=== PATIENT | male | born 1965 | race Caucasian/White ===

== ENCOUNTER → 2019-11-29 | Outpatient (CLI) | payer OTHER ==
[~2019-11-29] MED LIST: ATIVAN1 MG PO; AVELOX 400 MG400 MG PO; NORVASC5 MG PO; SYNTHROID75 MCG PO
[2019-11-29 09:33] LABS: BASOPHILS 1.1 % (0.0-2.0); EOSINOPHILS 1.9 % (0.0-3.0); HEMATOCRIT 46.6 % (42.0-52.0); LYMPHOCYTES 37.9 % (24.0-44.0); MCH 30.8 pg (26.0-34.0); MCHC 34.3 g/dL (28.0-37.0); MCV 89.6 fL (80.0-100.0); MONOCYTES 9.8 % (1.0-8.0); PLATELET COUNT 296 thou/uL (150-400); POLYS 49.3 % (36.0-66.0); RDW 13.4 % (10.5-14.5); WBC 6.1 thou/uL (4.0-11.0)
[2019-11-29 10:05] LABS: ALBUMIN 3.9 g/dL (3.4-5.0); ANION GAP 9 mmol/L (7-16); BUN 13 mg/dL (7-18); CALCIUM 8.7 mg/dL (8.5-10.1); CHLORIDE 105 mmol/L (98-107); CHOLESTEROL 224 mg/dL (<200); CO2 27 mmol/L (21-32); CREATININE 0.9 mg/dL (0.7-1.3); GLUCOSE 104 mg/dL (74-106); HDL CHOLESTEROL 43 mg/dL (>40); LDL CHOLESTEROL 166 mg/dL (<100); POTASSIUM 3.9 mmol/L (3.5-5.1); SGOT 14 U/L (15-37); SGPT 28 U/L (30-65); SODIUM 141 mmol/L (136-145); TC:HDL 5.2 Ratio (Not establshd); TOTAL BILIRUBIN 0.5 mg/dL (0.2-1.0); TOTAL PROTEIN 6.9 g/dL (6.4-8.2); TRIGLYCERIDE 79 mg/dL (<150); VLDL 16 mg/dL (<40)
== END ==
LOC: LABMALL 09:01
PROVIDERS: ATTEND Family Medicine
DX: Z12.5 Encounter for screening for malignant neoplasm of prostate (principal); E78.00 Pure hypercholesterolemia, unspecified; I10 Essential (primary) hypertension; E03.9 Hypothyroidism, unspecified; E55.9 Vitamin D deficiency, unspecified

== ENCOUNTER → 2019-12-20 | Outpatient (CLI) | payer OTHER | LOC: LAB 10:06 | PROVIDERS: ATTEND Student in an Organized Health Care Education/Training Program | DX: U07.1 COVID-19 (principal) ==

== ENCOUNTER → 2020-01-09 | Outpatient (CLI) | payer OTHER ==
[2020-01-09 12:24] LABS: ABSOLUTE NEUTROPHILS 3.7 thou/uL (1.4-8.2); BASOPHILS 0.6 % (0.0-2.0); HEMATOCRIT 45.8 % (42.0-52.0); HEMOGLOBIN 15.3 gm/dL (14.0-18.0); LYMPHOCYTES 28.7 % (24.0-44.0); MCH 30.1 pg (26.0-34.0); MCHC 33.3 g/dL (28.0-37.0); MCV 90.4 fL (80.0-100.0); MONOCYTES 10.5 % (1.0-8.0); PLATELET COUNT 368 thou/uL (150-400); POLYS 59.2 % (36.0-66.0); RBC 5.07 mil/uL (4.50-6.00); RDW 13.2 % (10.5-14.5); WBC 6.3 thou/uL (4.0-11.0)
[2020-01-09 12:40] LABS: ANION GAP 8 mmol/L (7-16); BUN 10 mg/dL (7-18); CALCIUM 8.8 mg/dL (8.5-10.1); CHLORIDE 104 mmol/L (98-107); CO2 29 mmol/L (21-32); GLUCOSE 96 mg/dL (74-106); POTASSIUM 4.3 mmol/L (3.5-5.1); SGOT 17 U/L (15-37); SGPT 39 U/L (30-65); SODIUM 141 mmol/L (136-145); TOTAL BILIRUBIN 0.6 mg/dL (0.2-1.0); TOTAL PROTEIN 7.3 g/dL (6.4-8.2)
[2020-01-09 12:56] LABS: CHOLESTEROL 237 mg/dL (<200); HDL CHOLESTEROL 37 mg/dL (>40); LDL CHOLESTEROL 167 mg/dL (<100); TC:HDL 6.4 Ratio (Not establshd); TRIGLYCERIDE 169 mg/dL (<150); VLDL 34 mg/dL (<40)
[2020-01-10 01:11] LABS: TESTOSTERONE* 362 ng/dL (264-916)
== END ==
LOC: LABMALL 10:27
PROVIDERS: ATTEND Family Medicine
DX: R53.83 Other fatigue (principal)

== ENCOUNTER 2020-03-09 16:01 | Emergency (ER) | payer OTHER ==
[~2020-03-09] VITALS: Ht 167.6 cm; Wt 72.6 kg
--- NOTE | ~2020-03-09 | EKG ---
[facility] [place] [address] ELECTROCARDIOGRAM REPORT Name: BROOKS ORTIZ Room #: [facility].#: [id number] Admission: Attend Phys: Discharge: Date of : 65 Report #: [id number] THIS REPORT FOR: cc: Robbie Collier MD, Rene P. MD Epiphany, Epiphany MD ~ THIS REPORT FOR: //name// [facility] ED Test Date: 2020-03-09 Test Time: 17:54:56 Pat Name: BROOKS ORTIZ Department: Room: Gender: [employer] Instructor: [facility] : 1965 Requested By: Farida Lynch Order Number: [id number] MD: Measurements Intervals Osborne Rate: 67 P: 67 AR: 167 QRS: 6 QRSD: 82 T: 17 QT: 379 QTc: 400 Interpretive Statements Sinus rhythm Compared to ECG 06/08/2014 10:33:16 No significant changes [email or web address] By: 53 53 Epiphany Epiphany, /EPI
[2020-03-09 18:20] VITALS: BP 148/72
== END 2020-03-09 18:52 | disposition home or self-care (01) ==
LOC: ER 16:01 → EDBD 16:01 → ER 18:52
DX: R07.9 Chest pain, unspecified (principal); M54.6 Pain in thoracic spine; K21.9 Gastro-esophageal reflux disease without esophagitis; I10 Essential (primary) hypertension; E03.9 Hypothyroidism, unspecified; Z79.899 Other long term (current) drug therapy; Z88.1 Allergy status to other antibiotic agents; Z88.8 Allergy status to other drugs, medicaments and biological substances

== ENCOUNTER → 2020-07-27 | Outpatient (CLI) | payer OTHER ==
[2020-07-27 08:47] LABS: ABSOLUTE NEUTROPHILS 2.9 thou/uL (1.4-8.2); BASOPHILS 0.9 % (0.0-2.0); EOSINOPHILS 2.5 % (0.0-3.0); HEMATOCRIT 45.4 % (42.0-52.0); LYMPHOCYTES 37.5 % (24.0-44.0); MCHC 33.1 g/dL (28.0-37.0); MCV 90.7 fL (80.0-100.0); MONOCYTES 10.8 % (1.0-8.0); PLATELET COUNT 322 thou/uL (150-400); POLYS 48.3 % (36.0-66.0); RBC 5.01 mil/uL (4.50-6.00); RDW 13.3 % (10.5-14.5)
[2020-07-27 09:08] LABS: ALBUMIN 3.7 g/dL (3.4-5.0); ANION GAP 5 mmol/L (7-16); BUN 11 mg/dL (7-18); CALCIUM 8.7 mg/dL (8.5-10.1); CHLORIDE 104 mmol/L (98-107); CHOLESTEROL 209 mg/dL (<200); CO2 31 mmol/L (21-32); GLUCOSE 103 mg/dL (74-106); HDL CHOLESTEROL 44 mg/dL (>40); LDL CHOLESTEROL 148 mg/dL (<100); POTASSIUM 3.6 mmol/L (3.5-5.1); SGOT 17 U/L (15-37); SGPT 30 U/L (30-65); SODIUM 140 mmol/L (136-145); TC:HDL 4.8 Ratio (Not establshd); TOTAL BILIRUBIN 0.6 mg/dL (0.2-1.0); TOTAL PROTEIN 7.1 g/dL (6.4-8.2); TRIGLYCERIDE 86 mg/dL (<150); VLDL 17 mg/dL (<40)
== END ==
LOC: LAB 07:28
PROVIDERS: ATTEND Family Medicine
DX: E78.00 Pure hypercholesterolemia, unspecified (principal); I10 Essential (primary) hypertension; E03.9 Hypothyroidism, unspecified

== ENCOUNTER → 2021-04-09 | Outpatient (CLI) | payer OTHER | LOC: CAT 10:39 | PROVIDERS: ATTEND Family Medicine | DX: K76.0 Fatty (change of) liver, not elsewhere classified (principal); R10.32 Left lower quadrant pain ==

== ENCOUNTER → 2021-05-16 | Outpatient (CLI) | payer OTHER ==
[~2021-05-16] MED LIST changes: +ASA81BEC PO; +OMEPRAZOLE 20 M20 M1 PO; +SYNTHROID100 MC1 PO; -SYNTHROID75 MCG PO; +VITAMIN D310 MC2 PO
== END ==
LOC: LAB 05-15 12:13
PROVIDERS: ATTEND Specialist
DX: Z01.812 Encounter for preprocedural laboratory examination (principal); Z20.822 Contact with and (suspected) exposure to COVID-19

== ENCOUNTER → 2021-05-17 | Outpatient (CLI) | payer OTHER ==
[~2021-05-17] VITALS: Ht 167.6 cm; Wt 72.6 kg
--- NOTE | 2021-05-21 15:07 | PATH ---
[facility] [address] [place] [address] PATHOLOGY RPT PROCEDURE Name: BROOKS ORTIZ MASHA Room #: [facility] Mayes.#: [id number] Admission: 05/17/21 Date of : [birth year] Discharge: Report #: [id number] Path Case #: [id number] [facility] Accession Number: [id number] . 01 Material submitted: . ileo-cecal valve - ILEOCECAL VALVE POLYP . 01 Clinical history: . COLONOSCOPY COLON CANCER SCREENING COLON POLYP, INTERNAL HEMORRHOIDS . 01 Diagnosis: Colonic mucosa, "ileocecal valve polyp biopsy": - Tubular adenoma. - There is no evidence of high grade dysplasia or malignancy. . (SHA:mml; 05/21/2021) QL 05/21/2021 1004 Local . 01 Electronically signed: . Tonio Smith MD, Pathologist NPI- [id number] . 01 Gross description: . The specimen is received in formalin, labeled "Alipour, Daryush, ileocecal valve polyp". Received are 2 segments of pale mason tissue ranging in size from 0.2 cm to 0.4 cm in maximum dimensions. The specimen is submitted entirely in cassette A1.([facility]; 05/20/2021) [facility] 05/20/2021 1030 Local . 01 Pathologist provided ICD-10: D12.0 . 01 CPT . 347679 Specimen Comment: A courtesy copy of this report has been sent to [phone], [phone] Specimen Comment: [phone] Specimen Comment: Report sent to / DR ELMORE Performed at: [address], [place] [id number] MD Tonio Smith MD Phone: [phone]
--- NOTE | 2021-05-22 09:38 | P ---
[facility] [place] [address] PROCEDURE REPORT Name: BROOKS ORTIZ Room #: [facility] Kwan#: [id number] Admission: 05/17/21 Attend Phys: Jason Padilla Discharge: Date of : [birth year] Report #: [id number] THIS REPORT FOR: cc: Robbie Collier MD, Rene P. MD McElhinney, Christian C. MD ~ cc: Robbie Collier MD DATE OF SERVICE: 05/17/2021 PROCEDURE PERFORMED: Colonoscopy with biopsies. HISTORY OF PRESENT ILLNESS: The patient is a 57-year-old male who presents today for screening colonoscopy. He denies any symptoms. No family history of colon cancer. DESCRIPTION OF PROCEDURE: The risks and benefits of the procedure were explained to the patient, those risks including but not limited to bleeding, perforation and the risk of sedation. He understood these risks and gave informed consent. Sedation was given using propofol per anesthesia. Next, a digital rectal exam was initially performed, which was normal. Next, using a standard Olympus colonoscope, the scope was placed in the patient's anus and advanced under direct vision to the cecum. The overall prep was excellent. The cecum was normal. On the ileocecal valve, a small 3 mm sessile polyp was noted. This was removed with cold forceps, otherwise normal. The ascending, transverse, descending, and sigmoid colon were normal. The rectal mucosa was normal. On retroflexion, small nonbleeding internal hemorrhoids were noted. The scope was then withdrawn and the procedure terminated. The patient tolerated the procedure well. IMPRESSION: 1. Small colonic polyp. 2. Small internal hemorrhoids. 3. Otherwise, normal colonoscopy. RECOMMENDATIONS: 1. Await biopsy results. 2. If polyp is hyperplastic, repeat in 10 years; if adenomatous polyp, repeat in 5 years. Thank you for allowing me to participate in his care. <ELECTRONICALLY SIGNED> By: Jason Roberts MD 05/22/21 0938 [id number] Jason Roberts MD /nt
== END | disposition home or self-care (01) ==
LOC: GI 10:26
PROVIDERS: ATTEND Specialist
DX: Z12.11 Encounter for screening for malignant neoplasm of colon (principal); D12.0 Benign neoplasm of cecum; K64.8 Other hemorrhoids; I10 Essential (primary) hypertension; E03.9 Hypothyroidism, unspecified; K21.9 Gastro-esophageal reflux disease without esophagitis; Z98.890 Other specified postprocedural states; Z79.899 Other long term (current) drug therapy; Z88.8 Allergy status to other drugs, medicaments and biological substances
CPT/HCPCS: 62110; 62900

== ENCOUNTER → 2021-05-27 | Outpatient (CLI) | payer OTHER ==
[2021-05-27 10:22] LABS: ABSOLUTE NEUTROPHILS 3.2 thou/uL (1.4-8.2); EOSINOPHILS 1.9 % (0.0-3.0); HEMATOCRIT 46.4 % (42.0-52.0); HEMOGLOBIN 15.4 gm/dL (14.0-18.0); LYMPHOCYTES 34.1 % (24.0-44.0); MCH 29.7 pg (26.0-34.0); MCHC 33.2 g/dL (28.0-37.0); MCV 89.3 fL (80.0-100.0); MONOCYTES 9.8 % (1.0-8.0); PLATELET COUNT 305 thou/uL (150-400); POLYS 53.2 % (36.0-66.0); RBC 5.19 mil/uL (4.50-6.00); RDW 13.5 % (10.5-14.5)
[2021-05-27 10:42] LABS: ALBUMIN 3.7 g/dL (3.4-5.0); ANION GAP 7 mmol/L (7-16); BUN 9 mg/dL (7-18); CALCIUM 8.9 mg/dL (8.5-10.1); CHLORIDE 104 mmol/L (98-107); CHOLESTEROL 224 mg/dL (<200); CO2 30 mmol/L (21-32); CREATININE 0.9 mg/dL (0.7-1.3); GLUCOSE 98 mg/dL (74-106); HDL CHOLESTEROL 42 mg/dL (>40); LDL CHOLESTEROL 163 mg/dL (<100); POTASSIUM 3.7 mmol/L (3.5-5.1); SGOT 15 U/L (15-37); SGPT 26 U/L (30-65); SODIUM 141 mmol/L (136-145); TC:HDL 5.3 Ratio (Not establshd); TOTAL BILIRUBIN 0.5 mg/dL (0.2-1.0); TOTAL PROTEIN 7.3 g/dL (6.4-8.2); TRIGLYCERIDE 97 mg/dL (<150); VLDL 19 mg/dL (<40)
== END ==
LOC: LAB 09:03
PROVIDERS: ATTEND Family Medicine
DX: Z12.5 Encounter for screening for malignant neoplasm of prostate (principal); Z00.00 Encounter for general adult medical examination without abnormal findings; Z13.220 Encounter for screening for lipoid disorders; E03.9 Hypothyroidism, unspecified